=== PATIENT | male | born 1945 | race Caucasian/White ===

== ENCOUNTER → 2016-09-16 | Outpatient (CLI) | payer MEDICARE, OTHER ==
[2016-09-16 11:53] LABS: ABSOLUTE EOSINOPHILS # (AUTO) 0.5 10^3/uL (0.0-0.6); ABSOLUTE LYMPHOCYTES (AUTO) 1.5 10^3/uL (0.5-4.7); ABSOLUTE MONOCYTES (AUTO) 1.1 10^3/uL (0.1-1.4); BASOPHILS % (AUTO) 0.4 % (0-2); EOSINOPHILS % (AUTO) 5.9 % (0-6); HEMATOCRIT 44.9 % (37.9-51.0); HEMOGLOBIN 14.2 g/dL (13.5-17.0); HGB HCT DIFFERENCE -2.3; MEAN CORPUSCULAR HEMOGLOBIN 30.4 pg (27.0-33.4); MEAN CORPUSCULAR HGB CONC 31.7 g/dL (32.0-36.0); MEAN CORPUSCULAR VOLUME 96 fl (80-97); MONOCYTES % (AUTO) 12.1 % (3-13); RED BLOOD COUNT 4.68 10^6/uL (4.35-5.55); RED CELL DISTRIBUTION WIDTH 14.1 % (11.5-14.0); SEGMENTED NEUTROPHILS % (AUTO) 65.6 % (42-78); WHITE BLOOD COUNT 9.2 10^3/uL (4.0-10.5)
== END ==
LOC: LAB 11:28
PROVIDERS: ATTEND Radiology Radiation Oncology
DX: C34.02 Malignant neoplasm of left main bronchus (principal); C34.11 Malignant neoplasm of upper lobe, right bronchus or lung; C77.1 Secondary and unspecified malignant neoplasm of intrathoracic lymph nodes
CPT/HCPCS: 36415; 85025

== ENCOUNTER 2016-11-04 11:37 | Inpatient (IN) | payer MEDICARE, OTHER ==
[2016-11-04] MEDS ORDERED: IPRATROPIUM/ALBUTEROL 0.5-2.5 MG/3 ML AMPUL NEB ONE (12:33)
[2016-11-04] MEDS ORDERED: METHYLPREDNISOLONE INJ 125 MG/2 ML SDV IV ONE (12:33)
--- NOTE | 2016-11-04 12:33 | ER Document Report ---
ED Respiratory Problem - General Chief Complaint: Breathing Difficulty Stated Complaint: DIFFICULTY BREATHING Notes: patient is a 71 year old male wiht PMH s/f stage 4 lung cancer p/w shortness of breath and cough for the past 3 days. States he recently completed radiation on 10/23 for lung cancer. Patient admits to SOB with chest pain worse with deep inhalation, states that the chest pain is fleeting and only with cough or deep breathing, does not last longer then 1 minute. radiates into his back. is not worse with movement or tender to palpation. He also admits to near syncope over the past two days. His son says that he did fall in the bathroom yesterday and denies head injury but admits to pain in the left hip. Denies h/o DVT, PE, PMH: h/o throat cancer in remission for 17 years, with tracheostomy, lung cancer stage 4 recently completed chemorad, AAA, CAD with 4 stents, h/o skin cancer, h/o prostate cancer, h/o CTS, hypothyroid, HLD PSH: coronary cath x3 with stent placement, trach, b/l knee TKA, Carpal tunnel release SH: former smoker, denies etoh, drug Meds: Lipitor, omega-3, Plavix, baby aspirin, multivitamin, calcium, Nexium, iron, levothyroxine, probiotic, tramadol, Ambien, fluoxetine, Advair, tolterodine PCP: fermin Onc: Efrain TRAVEL OUTSIDE OF THE [place] IN LAST 30 DAYS: No - Related Data Allergies/Adverse Reactions: No Known Allergies Allergy (Verified 02/08/16 09:30) Past Medical History - General Information source: Patient, Relative - Social History Smoking Status: Former Smoker Family History: Reviewed & Not Pertinent - Past Medical History Cardiac Medical History: Denies: Hx Atrial Fibrillation, Hx Congestive Heart Failure, Hx Coronary Artery Disease, Hx Heart Attack, Hx Hypercholesterolemia, Hx Hypertension, Hx Peripheral Vascular Disease, Hx Heart Murmur Pulmonary Medical History: Denies: Hx Asthma, Hx Bronchitis, Hx COPD, Hx Pneumonia Neurological Medical History: Denies: Hx Cerebrovascular Accident, Hx Seizures Renal/ Medical History: Reports: Hx Benign Prostatic Hyperplasia. Denies: Hx End Stage Renal Disease, Hx Kidney Stones, Hx Peritoneal Dialysis GI Medical History: Denies: Hx Hiatal Hernia Musculoskeltal Medical History: Reports Hx Arthritis - Both Knees Infectious Medical History: Past Surgical History: Reports: Hx Herniorrhaphy. Denies: Hx Appendectomy, Hx Bowel Surgery, Hx Cholecystectomy, Hx Coronary Artery Bypass Graft, Hx Gastric Bypass Surgery, Hx Open Heart Surgery, Hx Pacemaker, Hx Tonsillectomy - Immunizations Hx Diphtheria, Pertussis, Tetanus Vaccination: Yes - 2008 Hx Pneumococcal Vaccination: 06/01/14 Review of Systems - Review of Systems Constitutional: Chills, Diaphoresis EENT: No symptoms reported Cardiovascular: See HPI Respiratory: See HPI Gastrointestinal: No symptoms reported Genitourinary: No symptoms reported Male Genitourinary: No symptoms reported Musculoskeletal: No symptoms reported Skin: No symptoms reported Hematologic/Lymphatic: No symptoms reported Neurological/Psychological: No symptoms reported Physical Exam - Vital signs Vitals: Resp Pulse Ox 29 H 100 11/04/16 11:52 11/04/16 11:52 - Notes Notes: PHYSICAL EXAM GENERAL: Alert, interacts well. HEAD: Normocephalic, atraumatic. EYES: Pupils equal, round, and reactive to light. Extraocular movements intact. ENT: Oral mucosa moist, tongue midline. NECK: Full range of motion. Supple. Trachea midline. LUNGS: diminished breath sounds with wheezing, worse on the right, rales, or rhonchi. No respiratory distress. HEART: Regular rate and rhythm. No murmurs, gallops, or rubs. ABDOMEN: Soft, nondistended, nontender. No guarding, rebound, or rigidity.. Bowel sounds present in all 4 quadrants. EXTREMITIES: Moves all 4 extremities spontaneously. No edema, radial and dorsalis pedis pulses 2/4 bilaterally. No cyanosis. NEUROLOGICAL: Alert and oriented x3. Normal speech. PSYCH: Normal affect, normal mood. SKIN: Warm, dry, normal turgor. No rashes or lesions noted. Course - Re-evaluation Re-evalutation: 11/04/16 15:09 patient is a 71 year old male presents to the ED for SOB for 3 days. Patient does have a known diagnosis of stage 4 lung cancer as well as COPD. Was previously on advair but was taken of and switched to albuterol. CBC does not reveal evidence of leukocytosis or anemia. CMP does not reveal abnormalities in electrolytes, liver or pancreas function. D-dimer was elevated at 2.20. CXR does not show any acute process except for evidence of COPD. Patient currently HDS, NAD and afebrile with heart rate at 110 and sating 99% on 2L face mask over trach. At this time, Dr. daniel was consulted to discuss additional imaging. Patient was sent for a CTA of the chest given risk factors for PE and current presentation. 11/04/16 15:54 CTA of the chest does not reveal PE. Patient states that he feels like he is breathing better after breathing treatment but still appears to be breathing with effort. Attempt to wean 02 reveals desaturation to 87-88%. At this time, given underlying path and current COPD exaceration requiring supplemental 02, will admit to medical floor under Dr. Peyman Dominguez. Per [facility] protocol and guidelines, this case was discussed with supervising physician Dr. Елена Chan prior to admission Family at the bedside have mentioned that the patients oncologist is requesting a MRI of the brain for subjective confusion but for additional staging given patient has a h/o of 4 primary malignancies. D/w supervising physician Dr. Елена Chan. - Vital Signs Vital signs: Temp Pulse Resp BP Pulse Ox 20 131/80 H 95 11/04/16 15:22 11/04/16 15:22 11/04/16 15:22 - Laboratory Result Diagrams: 11/04/16 12:15 11/04/16 12:15 Laboratory results interpreted by me: 11/04/16 11/04/16 11/04/16 12:15 12:15 12:15 RBC 4.01 L Hgb 12.5 L Hct 36.4 L RDW 14.3 H Seg Neuts % (Manual) 79 H Lymphocytes % (Manual) 5 L Metamyelocytes % 1 H Abs Lymphs (Manual) 0.4 L D-Dimer 2.20 H VBG pCO2 Carbon Dioxide 21 L Creatine Kinase 222 H Urine Protein Urine Ascorbic Acid 11/04/16 11/04/16 13:04 13:55 RBC Hgb Hct RDW Seg Neuts % (Manual) Lymphocytes % (Manual) Metamyelocytes % Abs Lymphs (Manual) D-Dimer VBG pCO2 33.8 L Carbon Dioxide Creatine Kinase Urine Protein 30 H Urine Ascorbic Acid 40 H - Diagnostic Test Radiology reviewed: Image reviewed, Reports reviewed - EKG Interpretation by Me EKG shows normal: Sinus rhythm Rate: Tachycardia Rhythm: NSR When compared to previous EKG there are: Changes noted Discharge - Discharge Clinical Impression: COPD with exacerbation Condition: Stable Disposition: ADMITTED INPATIENT Admitting Provider: Hospitalist - [facility] Admitted: Medical Floor Referrals: MODE MARQUES MD [Primary Care Provider] - Follow up as needed
[2016-11-04 12:51] LABS: HEMATOCRIT 36.4 % (37.9-51.0); HEMOGLOBIN 12.5 g/dL (13.5-17.0); HGB HCT DIFFERENCE 1.1; MEAN CORPUSCULAR HEMOGLOBIN 31.1 pg (27.0-33.4); MEAN CORPUSCULAR HGB CONC 34.3 g/dL (32.0-36.0); MEAN CORPUSCULAR VOLUME 91 fl (80-97); RED BLOOD COUNT 4.01 10^6/uL (4.35-5.55); RED CELL DISTRIBUTION WIDTH 14.3 % (11.5-14.0); WHITE BLOOD COUNT 8.5 10^3/uL (4.0-10.5)
[2016-11-04 13:06] LABS: ALANINE AMINOTRANSFERASE 31 U/L (21-72); ALBUMIN 3.6 g/dL (3.5-5.0); ALKALINE PHOSPHATASE 117 U/L (38-126); ANION GAP 16 (5-19); ASPARTATE AMINO TRANSFERASE 49 U/L (17-59); BILIRUBIN,TOTAL 0.8 mg/dL (0.2-1.3); BLOOD UREA NITROGEN 17 mg/dL (7-20); CALCIUM 8.8 mg/dL (8.4-10.2); CARBON DIOXIDE 21 mmol/L (22-30); CHLORIDE 102 mmol/L (98-107); CREATINE KINASE 222 U/L (55-170); CREATININE RESULT 0.75 mg/dL (0.52-1.25); GLUCOSE 110 mg/dL (75-110); SODIUM 138.6 mmol/L (137-145); TOTAL PROTEIN 7.3 g/dL (6.3-8.2)
[2016-11-04 13:12] LABS: BAND NEUTROPHILS % (MANUAL) 3 % (3-5); BASOPHILS % (MANUAL) 0 % (0-2); EOSINOPHILS % (MANUAL) 3 % (0-6); LYMPHOCYTES % (MANUAL) 5 % (13-45); OVALOCYTES SLIGHT; POIKILOCYTOSIS SLIGHT; POLYCHROMASIA SLIGHT; TOTAL CELLS COUNTED 100; TOXIC GRANULATION SLIGHT; TOXIC VACUOLATION PRESENT
[2016-11-04 13:14] LABS: CREATINE KINASE MB 1.89 ng/mL (<4.55)
[2016-11-04 13:15] LABS: TROPONIN I < 0.012 ng/mL
[2016-11-04 13:46] LABS: VENOUS BLOOD PCO2 33.8 mmHg (35-63); VENOUS BLOOD PH 7.41 (7.30-7.42)
[2016-11-04 14:20] LABS: APPEARANCE,URINE SLIGHTLY-CLOUDY; BILIRUBIN,URINE NEGATIVE (NEGATIVE); GLUCOSE, URINE NEGATIVE (NEGATIVE); KETONES,URINE NEGATIVE (NEGATIVE); LEUKOCYTE ESTERASE,URINE NEGATIVE (NEGATIVE); NITRITE,URINE NEGATIVE (NEGATIVE); PROTEIN,URINE 30 mg/dL (NEGATIVE); URINE SPECIFIC GRAVITY 1.017; UROBILINOGEN,URINE NEGATIVE mg/dL (<2.0)
[2016-11-04] MEDS ORDERED: ACETAMINOPHEN 325 MG TABLET PO ONE (15:44)
[2016-11-04] MEDS ORDERED: ONDANSETRON HCL INJ/PF 4 MG/2 ML SDV IV PRN (16:33)
[2016-11-04] MEDS ORDERED: ACETAMINOPHEN 325 MG TABLET PO PRN (16:33)
[2016-11-04] MEDS ORDERED: ONDANSETRON 4 MG TAB.RAPDIS PO PRN (16:33)
[2016-11-04] MEDS ORDERED: IPRATROPIUM/ALBUTEROL 0.5-2.5 MG/3 ML AMPUL NEB PRN (17:05)
--- NOTE | 2016-11-04 17:14 | PDOC H&P ---
History of Present Illness Admission Date/PCP: 11/04/16 16:05 MODE MARQUES MD Patient complains of: Cough and shortness of breath History of Present Illness: MARIAMA RASHEED is a 71 year old male with a distant history of laryngeal cancer and a recent history of lung cancer for which he finished his radiation therapy on October 23 who presents with shortness of breath and cough. Patient reports that over the last week she's had worsening cough over the last 3 days has become more short of breath and has had a cough productive of thick greenish bloody tinged sputum. Patient also has been short of breath and has had some worsening dyspnea on exertion. He had a positive d-dimer and underwent a CT angiogram of the lungs are showed no evidence for pulmonary embolism but did show his lung tumor and no obvious infiltrate. The patient denies having any chest pain associated with this. He denies any orthopnea or PND. Patient is admitted for an acute COPD exacerbation with bronchitis. Past Medical History Cardiac Medical History: Reports: Coronary Artery Disease, Hyperlipidema, Hypertension, Peripheral Vascular Disease Denies: Atrial Fibrillation, Congestive Heart Failure, Myocardial Infarction , Heart Murmur Pulmonary Medical History: Reports: Chronic Obstructive Pulmonary Disease (COPD) , Other - Lung cancer Denies: Asthma, Bronchitis, Pneumonia Neurological Medical History: Reports: Other - Myasthenia gravis is listed in the past medical history from a history of his in 2011, patient was unaware that he had this diagnosis Denies: Seizures Endocrine Medical History: Reports: None Malignancy Medical History: Reports: Lung Cancer, Other - Laryngeal cancer GI Medical History: Reports: Gastroesophageal Reflux Disease Denies: Hiatal Hernia Musculoskeltal Medical History: Reports: Arthritis - Both Knees Skin Medical History: Reports: None Psychiatric Medical History: Reports: None Hematology: Denies: Anemia Past Surgical History Past Surgical History: Reports: Cardiac Catheterization, Carotid Endarterectomy , Coronary Stent, Herniorrhaphy, Vascular Surgery - Right femoropopliteal bypass Social History Information Source: Patient Lives with: Spouse/Significant other Smoking Status: Former Smoker Frequency of Alcohol Use: None Hx Recreational Drug Use: No Drugs: None Hx Prescription Drug Abuse: No - Advance Directive Resuscitation Status: Do Not Resuscitate - Patient requests to be a DO NOT RESUSCITATE Family History Family History: Father at age 36 from an accidental . Mother age 56 from breast cancer Parental Family History Reviewed: Yes Children Family History Reviewed: No Sibling(s) Family History Reviewed.: No Medication/Allergy Home Medications: Aspirin 81 mg Chewable Tablet 81 mg PO DAILY 09/01/11 Fish Oil 1,000 mg PO DAILY 09/01/11 Multivitamins 1 tab PO DAILY 09/01/11 Plavix 75 mg Tablet 75 mg PO DAILY 09/01/11 Tramadol HCl 2 tab PO Q4H 09/14/11 Acetaminophen [Pain & Fever] 1 tab PO QID 02/08/16 Amoxicillin Trihydrate [Amoxil 875 mg Tablet] 1 tab PO BID PRN 02/08/16 Bacitracin Zinc [Bacitracin Oint 15 gm] 1 applic TP DAILY 02/08/16 Calcium Carbonate [Calcium] 500 mg PO DAILY 02/08/16 Esomeprazole Magnesium [Nexium] 40 mg PO DAILY 02/08/16 Ipratropium [place] [Atrovent Hfa] 12.9 gm IH DAILY 02/08/16 Ketoconazole 15 gm TP DAILY 02/08/16 Nystatin [Mycostatin 589545 Unit/1 ml Susp 60 ml Btl] 100,000 unit PO DAILY 05/17 Rosuvastatin Calcium [Crestor 10 mg Tablet] 10 mg PO DAILY 02/08/16 Thyroxine 25 mg PO DAILY 02/08/16 Allergies/Adverse Reactions: No Known Allergies Allergy (Verified 02/08/16 09:30) Review of Systems Constitutional: PRESENT: chills, fever(s). ABSENT: night sweats, weight gain, weight loss Eyes: ABSENT: visual disturbances Ears: ABSENT: hearing changes Cardiovascular: PRESENT: as per HPI, dyspnea on exertion. ABSENT: chest pain, edema, orthropnea, palpitations Respiratory: PRESENT: as per HPI, cough, dyspnea, sputum - Greenish blood tinged. ABSENT: hemoptysis Gastrointestinal: ABSENT: abdominal pain, constipation, diarrhea, hematemesis, hematochezia, nausea, vomiting Genitourinary: ABSENT: dysuria, hematuria Musculoskeletal: ABSENT: joint swelling Integumentary: ABSENT: rash, wounds Neurological: ABSENT: abnormal gait, abnormal speech, confusion, dizziness, focal weakness, syncope Psychiatric: ABSENT: anxiety, depression Endocrine: ABSENT: cold intolerance, heat intolerance, polydipsia, polyuria Hematologic/Lymphatic: ABSENT: easy bleeding, easy bruising Physical Exam Vital Signs: Temp Pulse Resp BP Pulse Ox 25 H 137/84 H 100 11/04/16 16:01 11/04/16 16:01 11/04/16 16:01 General appearance: PRESENT: mild distress Head exam: PRESENT: atraumatic, normocephalic Eye exam: PRESENT: conjunctiva pink, EOMI, PERRLA. ABSENT: scleral icterus Ear exam: PRESENT: normal external ear exam Mouth exam: PRESENT: moist, tongue midline Neck exam: PRESENT: tracheostomy. ABSENT: carotid bruit, JVD, lymphadenopathy, thyromegaly Respiratory exam: PRESENT: wheezes - Bilateral expiratory wheezes.. ABSENT: rales, rhonchi Cardiovascular exam: PRESENT: RRR. ABSENT: diastolic murmur, rubs, systolic murmur Vascular exam: PRESENT: normal capillary refill GI/Abdominal exam: PRESENT: normal bowel sounds, soft. ABSENT: distended, guarding, mass, organolmegaly, rebound, tenderness Rectal exam: PRESENT: deferred Extremities exam: ABSENT: calf tenderness, clubbing, pedal edema Neurological exam: PRESENT: alert, awake, oriented to person, oriented to place , oriented to time, oriented to situation, CN II-XII grossly intact. ABSENT: motor sensory deficit Psychiatric exam: PRESENT: appropriate affect Skin exam: PRESENT: dry, intact, warm. ABSENT: cyanosis, rash Results Impressions: Chest X-Ray 11/04/16 11:40 IMPRESSION: COPD. NO ACUTE RADIOGRAPHIC FINDING IN THE CHEST. Chest/Abdomen CTA 11/04/16 13:01 IMPRESSION: Left suprahilar mass. Probably a malignant. Possible subcarinal adenopathy. See above discussion. Severe centrilobular and paraseptal emphysema. Assessment & Plan - Diagnosis (1) COPD with exacerbation Is this a current diagnosis for this admission?: YesPlan: Patient has an acute COPD exacerbation most likely secondary to some underlying bronchitis. He did finished radiation therapy for his lung cancer on October 23. We will treat with IV steroids, nebulizers, antibiotics in the form of Rocephin and Zithromax. (2) Bronchitis Is this a current diagnosis for this admission?: YesPlan: he has some blood-tinged sputum we'll cover with Rocephin and Zithromax. (3) Coronary artery disease Is this a current diagnosis for this admission?: YesPlan: Denies any chest pain (4) Lung cancer Is this a current diagnosis for this admission?: YesPlan: The patient finished up his radiation therapy on October 23 (5) Hypertension Is this a current diagnosis for this admission?: Yes (6) Hyperlipidemia Is this a current diagnosis for this admission?: Yes (7) Gastroesophageal reflux disease Is this a current diagnosis for this admission?: Yes (8) Peripheral vascular disease Is this a current diagnosis for this admission?: Yes (9) Abdominal aortic aneurysm (AAA) Is this a current diagnosis for this admission?: YesPlan: Patient has a 4.5 cm abdominal aortic aneurysm by his report. He is to have a endovascular repair in the near future. (10) Laryngeal carcinoma Is this a current diagnosis for this admission?: YesPlan: He had his tracheostomy several years ago. The lung cancer and laryngeal cancer are not related (11) Prostate cancer Is this a current diagnosis for this admission?: YesPlan: Patient received radiation therapy this years ago and is asymptomatic (12) Myasthenia gravis Is this a current diagnosis for this admission?: YesPlan: The patient has listed in the chart from 2011 that he had myasthenia gravis. Patient denies any knowledge of having been diagnosed with myasthenia gravis. This most likely is in error - Time Time Spent: 50 to 70 Minutes - Inpatient Certification Medical Necessity: Need Close Monitoring Due to Risk of Patient Decompensation, Need for IV Antibiotics - Plan Summary Plan Summary: We'll make a full inpatient as I anticipate this will require greater than a two midnight hospital stay because of his need for IV antibiotics and IV steroids for treatment of his acute COPD exacerbation with bronchitis.
[2016-11-04] MEDS ORDERED: ENOXAPARIN SODIUM INJ 40 MG/0.4 ML DISP.SYRIN SUBCUT ONE (18:00)
[2016-11-04] MEDS: AZITHROMYCIN 500 MG in DEXTROSE 5%-WATER 250 ML IV SCH (18:37)
--- NOTE | 2016-11-04 20:49 | EKG REPORT ---
SEVERITY:- OTHERWISE NORMAL ECG - SINUS TACHYCARDIA : Confirmed by: Bessy Wood 04-Nov-2016 20:48:53
[2016-11-04] MEDS: CEFTRIAXONE 1 GM/D5W RTU 1 GM/50 ML RTUPB IV SCH (23:28)
[2016-11-04] MEDS: NORMAL SALINE 1000 ML 1,000 ML IV PRN (23:29)
[2016-11-04] MEDS ORDERED: ZOLPIDEM TARTRATE 5 MG TABLET PO ONE (23:45)
[2016-11-05] MEDS: ATORVASTATIN CALCIUM 20 MG TABLET PO SCH ×2 (00:17→21:10)
[2016-11-05] MEDS: METHYLPREDNISOLONE INJ 40 MG/1 ML SDV IV SCH ×4 (00:17→21:11)
[2016-11-05 05:28] LABS: HEMOGLOBIN 11.6 g/dL (13.5-17.0); HGB HCT DIFFERENCE 0.8; MEAN CORPUSCULAR HEMOGLOBIN 31.3 pg (27.0-33.4); MEAN CORPUSCULAR HGB CONC 34.2 g/dL (32.0-36.0); MEAN CORPUSCULAR VOLUME 92 fl (80-97); RED BLOOD COUNT 3.71 10^6/uL (4.35-5.55); RED CELL DISTRIBUTION WIDTH 14.3 % (11.5-14.0); WHITE BLOOD COUNT 5.6 10^3/uL (4.0-10.5)
[2016-11-05 05:53] LABS: ANION GAP 10 (5-19); BLOOD UREA NITROGEN 20 mg/dL (7-20); CALCIUM 8.6 mg/dL (8.4-10.2); CARBON DIOXIDE 24 mmol/L (22-30); CHLORIDE 107 mmol/L (98-107); GLUCOSE 152 mg/dL (75-110); POTASSIUM 4.3 mmol/L (3.6-5.0); SODIUM 141.4 mmol/L (137-145)
[2016-11-05] MEDS: IPRATROPIUM/ALBUTEROL 0.5-2.5 MG/3 ML AMPUL NEB SCH ×3 (07:46→20:04)
[2016-11-05] MEDS ORDERED: (PENDING PHARMACY ID) (Calcium Carbonate [Calcium] 500 MG) PO SCH (10:00)
[2016-11-05] MEDS ORDERED: ASPIRIN 81 MG PO SCH (10:00)
[2016-11-05] MEDS ORDERED: FISH OIL 1000 MG PO SCH (10:00)
[2016-11-05] MEDS: ENOXAPARIN SODIUM INJ 40 MG/0.4 ML DISP.SYRIN SUBCUT SCH (10:25)
[2016-11-05] MEDS: OMEGA-3 ACID ETHYL ESTERS 1 GM CAPSULE PO SCH (10:26)
[2016-11-05] MEDS: CALCIUM CARBONATE 500 MG TABLET PO SCH (10:26)
[2016-11-05] MEDS: ASPIRIN 81 MG TABLET, CHEWABLE PO SCH (10:26)
[2016-11-05] MEDS: LANSOPRAZOLE 30 MG TAB.RAP.DR PO SCH (10:26)
[2016-11-05] MEDS: NORMAL SALINE 1000 ML 1,000 ML IV PRN ×2 (10:27→21:11)
[2016-11-05] MEDS: CLOPIDOGREL BISULFATE 75 MG TABLET PO SCH (10:27)
--- NOTE | 2016-11-05 16:33 | Physician Advisory Note ---
Physician Advisor ProgressNote .: Pursuant to the plan for [facility], I have reviewed the medical record for this patient. Physician Advisor Statement: Possible documentation opportunities if attending agrees: 1. "acute hypoxemic respiratory failure with O2 sat 79% on RA for EMS , sat 100 % initially here on 15L NRB O2 with continued increased work of breathing" (as per initial ED nursing assessment) 2. "Acute bronchitis" - or do you feel pt has 'chronic bronchitis' instead? 3. Code status order is for Full Code. H&P states pt desires DNR. Did pt change mind? Please address discrepancy in documentation. As always, if concerned about any unstable VS or abnormal labs, please comment on them & note what doing about them, & please document each day the potential clinical problems you are concerned could occur if pt not kept in hospital for tx at this time. Discussion: 71yo male w/ chronic co-morbidities including stage 4 lung CA (type?) recently s /p chemo/radiation, COPD, CAD w/4 stents, past prostate CA & throat CA w/trach - presented 3/6AM to ED w/SOB/cough/pleuritic CP/chills/diaphoresis, near syncope, fall in Bathroom 1 day prior w/pain Lt hip, reported change of Advair to albuterol. (+) RR29, HR 110, sat high 90s -100 on O2 after initial 79% RA for EMS, continued effortful breathing, desat to 87-88% in ED when attempted to wean O2. D-dimer 2.20, CXR = COPD, Hgb 12.5, WBC 8.5, bicarb 21. CT-A = no PE/ infiltrate but (+)lung tumor Lt suprahilar area & severe emphysema. Attending ordered IV sSolumedrol 40 IV q8h, Zithromax IV, Rocephin IV, NS @125, Duonebs q6h WA, I/Os, sputum cx, VS q4h, full code, O2 per trach collar. Status: Pt with not just a routine uncomplicated COPD exacerbation but acute respiratory failure on top of COPD exac & lung CA stage 4 w/continued lung tumor presence & severe underlying emphysema by CT. Attending documents expectation that it will take >1MN of hospital care for this to be stabilized, & this reviewer agrees this would be expected given the associated comorbidities & unlikeliness of quick response in this case. Pt still SOB this AM per nursing notes. Tx in inpatient hospital setting medically reasonable & necessary to protect pt' s health, safety, & medical condition. Appropriate for Inpt status. Thanks for your help with documentation accuracy/specificity improvement! Darlene Hayden MD PENDING S[facility] Physician Advisor, Fellow of Hospital Medicine
--- NOTE | 2016-11-05 16:38 | PDOC PROGRESS REPORT ---
Subjective Progress Note for:: 11/05/16 Subjective:: Patient is feeling better. Breathing is better. Still coughing up a lot of dry mucous. Denies chills or fever. No diarrhea. Occasional pleurisy. Physical Exam Vital Signs: Temp Pulse Resp BP Pulse Ox 98.3 F 80 18 150/72 H 100 11/05/16 11:46 11/05/16 14:08 11/05/16 14:08 11/05/16 11:46 11/05/16 14:08 Intake & Output 11/04/16 11/05/16 11/06/16 06:59 06:59 06:59 Intake Total 1279 Output Total 450 Balance -450 1279 Weight 75.5 kg General appearance: PRESENT: no acute distress, cooperative Head exam: PRESENT: normocephalic Eye exam: PRESENT: EOMI Mouth exam: PRESENT: moist, neck supple, other - Tracheostomy stoma clean Neck exam: ABSENT: JVD Respiratory exam: PRESENT: wheezes - Minimal bilateral. ABSENT: crackles, rhonchi Cardiovascular exam: PRESENT: RRR. ABSENT: gallop GI/Abdominal exam: PRESENT: soft. ABSENT: distended, tenderness Extremities exam: PRESENT: other - Trace pretibial edema. ABSENT: clubbing Neurological exam: PRESENT: alert, awake, oriented to situation Skin exam: PRESENT: dry, warm. ABSENT: cyanosis Results Laboratory Results: 11/05/16 04:40 11/05/16 04:40 11/05/16 11/05/16 04:40 04:40 WBC 5.6 RBC 3.71 L Hgb 11.6 L Hct 34.0 L MCV 92 MCH 31.3 MCHC 34.2 RDW 14.3 H Plt Count 247 Sodium 141.4 Potassium 4.3 Chloride 107 Carbon Dioxide 24 Anion Gap 10 BUN 20 Creatinine 0.70 Est GFR ( Amer) > 60 Est GFR (Non-Af Amer) > 60 Glucose 152 H Calcium 8.6 Impressions: Chest X-Ray 11/04/16 11:40 IMPRESSION: COPD. NO ACUTE RADIOGRAPHIC FINDING IN THE CHEST. Chest/Abdomen CTA 11/04/16 13:01 IMPRESSION: Left suprahilar mass. Probably a malignant. Possible subcarinal adenopathy. See above discussion. Severe centrilobular and paraseptal emphysema. Assessment & Plan - Diagnosis (1) COPD with exacerbation Is this a current diagnosis for this admission?: Yes (2) Lung cancer Qualifiers: Laterality: unspecified laterality Lung location: unspecified part of lung Qualified Code(s): C34.90 - Malignant neoplasm of unspecified part of unspecified bronchus or lung Is this a current diagnosis for this admission?: Yes (3) Coronary artery disease Qualifiers: Coronary Disease-Associated Artery/Lesion type: [place] artery [place] vs. transplanted heart: [place] heart Associated angina: without angina Qualified Code(s): I25.10 - Atherosclerotic heart disease of [place] coronary artery without angina pectoris Is this a current diagnosis for this admission?: Yes (4) Gastroesophageal reflux disease Qualifiers: Esophagitis presence: without esophagitis Qualified Code(s): K21.9 - Gastro-esophageal reflux disease without esophagitis Is this a current diagnosis for this admission?: Yes (5) Hyperlipidemia Qualifiers: Hyperlipidemia type: unspecified Qualified Code(s): E78.5 - Hyperlipidemia, unspecified Is this a current diagnosis for this admission?: Yes (6) Hypertension Qualifiers: Hypertension type: essential hypertension Qualified Code(s): I10 - Essential (primary) hypertension Is this a current diagnosis for this admission?: Yes (7) Peripheral vascular disease Is this a current diagnosis for this admission?: Yes - Time Time Spent with patient: 25-34 minutes - Plan Summary Plan Summary: We will add vancomycin to current antibiotic regimen. Follow cultures. We will continue COPD treatment. We will evaluate for home oxygen requirement. Continue supportive care. We will send a sputum specimen for cytology.
[2016-11-05] MEDS ORDERED: VANCOMYCIN HCL INJ 1000 MG VIAL IV SCH (16:45)
[2016-11-05] MEDS: CEFTRIAXONE 1 GM/D5W RTU 1 GM/50 ML RTUPB IV SCH (17:46)
[2016-11-05] MEDS: AZITHROMYCIN 500 MG in DEXTROSE 5%-WATER 250 ML IV SCH (18:44)
[2016-11-05] MEDS: ZOLPIDEM TARTRATE 5 MG TABLET PO SCH (21:10)
[2016-11-05] MEDS: VANCOMYCIN HCL 1,250 MG in DEXTROSE 5%-WATER 250 ML IV SCH (21:14)
[2016-11-06] MEDS: METHYLPREDNISOLONE INJ 40 MG/1 ML SDV IV SCH (05:27)
[2016-11-06] MEDS: IPRATROPIUM/ALBUTEROL 0.5-2.5 MG/3 ML AMPUL NEB SCH ×3 (07:54→20:49)
[2016-11-06] MEDS: ENOXAPARIN SODIUM INJ 40 MG/0.4 ML DISP.SYRIN SUBCUT SCH (09:32)
[2016-11-06] MEDS: OMEGA-3 ACID ETHYL ESTERS 1 GM CAPSULE PO SCH (09:34)
[2016-11-06] MEDS: CALCIUM CARBONATE 500 MG TABLET PO SCH (09:34)
[2016-11-06] MEDS: ASPIRIN 81 MG TABLET, CHEWABLE PO SCH (09:34)
[2016-11-06] MEDS: LANSOPRAZOLE 30 MG TAB.RAP.DR PO SCH (09:35)
[2016-11-06] MEDS: CLOPIDOGREL BISULFATE 75 MG TABLET PO SCH (09:35)
[2016-11-06] MEDS: VANCOMYCIN HCL 1,250 MG in DEXTROSE 5%-WATER 250 ML IV SCH ×2 (09:38→21:28)
[2016-11-06] MEDS ORDERED: VANCOMYCIN HCL 1,000 MG in DEXTROSE 5%-WATER 250 ML IV SCH (10:00)
--- NOTE | 2016-11-06 10:13 | PDOC PROGRESS REPORT ---
Subjective Progress Note for:: 11/06/16 Subjective:: Patient is feeling better today. Still with some coughing less. Room air oxygen at rest is greater than 90%. Patient denies any chills or fever, nausea or vomiting, abdominal pain, diarrhea. Physical Exam Vital Signs: Temp Pulse Resp BP Pulse Ox 98.3 F 118 H 16 125/59 L 97 11/06/16 08:31 11/06/16 08:31 11/06/16 08:31 11/06/16 08:31 11/06/16 08:31 Intake & Output 11/05/16 11/06/16 11/07/16 06:59 06:59 06:59 Intake Total 3035 Output Total 450 675 Balance -450 2360 Weight 75.5 kg 78.2 kg General appearance: PRESENT: no acute distress, cooperative Head exam: PRESENT: normocephalic Eye exam: PRESENT: EOMI, scleral icterus Ear exam: PRESENT: normal external ear exam. ABSENT: drainage Mouth exam: PRESENT: moist, neck supple Neck exam: ABSENT: JVD Respiratory exam: PRESENT: decreased breath sounds. ABSENT: rhonchi - few Cardiovascular exam: PRESENT: RRR. ABSENT: diastolic murmur, rubs, systolic murmur Pulses: PRESENT: normal dorsalis pedis pul Vascular exam: PRESENT: normal capillary refill GI/Abdominal exam: PRESENT: soft. ABSENT: distended, tenderness Extremities exam: ABSENT: pedal edema Neurological exam: PRESENT: alert, awake, oriented to person, oriented to place , oriented to time, oriented to situation Skin exam: PRESENT: dry, warm. ABSENT: cyanosis Results Laboratory Results: 11/05/16 04:40 11/05/16 04:40 11/04/16 21:00 Sputum Gram Stain - Final Impressions: Chest X-Ray 11/04/16 11:40 IMPRESSION: COPD. NO ACUTE RADIOGRAPHIC FINDING IN THE CHEST. Chest/Abdomen CTA 11/04/16 13:01 IMPRESSION: Left suprahilar mass. Probably a malignant. Possible subcarinal adenopathy. See above discussion. Severe centrilobular and paraseptal emphysema. Assessment & Plan - Diagnosis (1) COPD with exacerbation Is this a current diagnosis for this admission?: Yes (2) Lung cancer Qualifiers: Laterality: unspecified laterality Lung location: unspecified part of lung Qualified Code(s): C34.90 - Malignant neoplasm of unspecified part of unspecified bronchus or lung Is this a current diagnosis for this admission?: Yes (3) Coronary artery disease Qualifiers: Coronary Disease-Associated Artery/Lesion type: [place] artery [place] vs. transplanted heart: [place] heart Associated angina: without angina Qualified Code(s): I25.10 - Atherosclerotic heart disease of [place] coronary artery without angina pectoris Is this a current diagnosis for this admission?: Yes (4) Gastroesophageal reflux disease Qualifiers: Esophagitis presence: without esophagitis Qualified Code(s): K21.9 - Gastro-esophageal reflux disease without esophagitis Is this a current diagnosis for this admission?: Yes (5) Hyperlipidemia Qualifiers: Hyperlipidemia type: unspecified Qualified Code(s): E78.5 - Hyperlipidemia, unspecified Is this a current diagnosis for this admission?: Yes (6) Hypertension Qualifiers: Hypertension type: essential hypertension Qualified Code(s): I10 - Essential (primary) hypertension Is this a current diagnosis for this admission?: Yes (7) Peripheral vascular disease Is this a current diagnosis for this admission?: Yes - Time Time Spent with patient: 15-24 minutes - Plan Summary Plan Summary: Continue ceftriaxone and vancomycin. Discontinue Zithromax. We will give lactobacillus. Patient reports Clostridium difficile toxin in the past w/ IV antibiotics. Check room air oxygen saturation on ambulation. Follow cultures.
[2016-11-06] MEDS ORDERED: (PENDING PHARMACY ID) (L.Acidoph & Paracasei,B.Lactis [Probiotic] 1 CAP) PO SCH (10:15)
[2016-11-06] MEDS: PREDNISONE 20 MG TABLET PO SCH (12:18)
[2016-11-06] MEDS: LACTOBACILLUS ACIDOPHILUS 250 MG TAB PO SCH (18:29)
[2016-11-06] MEDS: CEFTRIAXONE 1 GM/D5W RTU 1 GM/50 ML RTUPB IV SCH (18:31)
[2016-11-06] MEDS ORDERED: NORMAL SALINE 1000 ML 1,000 ML IV PRN (18:40)
[2016-11-06] MEDS: ATORVASTATIN CALCIUM 20 MG TABLET PO SCH (21:27)
[2016-11-06] MEDS: ZOLPIDEM TARTRATE 5 MG TABLET PO SCH (21:28)
[2016-11-07] MEDS: IPRATROPIUM/ALBUTEROL 0.5-2.5 MG/3 ML AMPUL NEB SCH ×2 (08:49→13:29)
[2016-11-07 11:01] LABS: CREATININE RESULT 0.78 mg/dL (0.52-1.25)
[2016-11-07] MEDS: LACTOBACILLUS ACIDOPHILUS 250 MG TAB PO SCH (11:05)
[2016-11-07] MEDS: CLOPIDOGREL BISULFATE 75 MG TABLET PO SCH (11:06)
[2016-11-07] MEDS: OMEGA-3 ACID ETHYL ESTERS 1 GM CAPSULE PO SCH (11:06)
[2016-11-07] MEDS: ASPIRIN 81 MG TABLET, CHEWABLE PO SCH (11:06)
[2016-11-07] MEDS: PREDNISONE 20 MG TABLET PO SCH (11:06)
[2016-11-07] MEDS: LANSOPRAZOLE 30 MG TAB.RAP.DR PO SCH (11:07)
[2016-11-07] MEDS: ENOXAPARIN SODIUM INJ 40 MG/0.4 ML DISP.SYRIN SUBCUT SCH (11:07)
[2016-11-07] MEDS: CALCIUM CARBONATE 500 MG TABLET PO SCH (11:07)
--- NOTE | 2016-11-07 14:38 | PDOC DISCHARGE SUMMARY ---
General - Admit/Disc Date/PCP Admission Date/Primary Care Provider: 11/04/16 16:33 MODE MARQUES MD Discharge Date: 11/07/16 - Discharge Diagnosis (1) COPD with exacerbation Is this a current diagnosis for this admission?: Yes (2) Bronchitis Is this a current diagnosis for this admission?: Yes (3) Lung cancer Is this a current diagnosis for this admission?: Yes (4) Coronary artery disease Is this a current diagnosis for this admission?: Yes (5) Gastroesophageal reflux disease Is this a current diagnosis for this admission?: Yes (6) Hyperlipidemia Is this a current diagnosis for this admission?: Yes (7) Hypertension Is this a current diagnosis for this admission?: Yes (8) Peripheral vascular disease Is this a current diagnosis for this admission?: Yes - Additional Information Resuscitation Status: Do Not Resuscitate - Patient requests to be a DO NOT RESUSCITATE Discharge Diet: Cardiac - cardiac prudent Discharge Activity: Activity As Tolerated, Balance Activity w/Rest, Slowly Increase Activity Home Medications: Aspirin [Aspirin 81 mg Chewable Tablet] 81 mg PO DAILY 11/04/16 Atorvastatin Calcium [Lipitor 20 mg Tablet] 20 mg PO DAILY 11/04/16 Calcium Carbonate 500 mg PO DAILY 11/04/16 Carboxymethylcellulose Sodium [Lubricant Eye Drops] 1 drop OU Q12 11/04/16 Clopidogrel Bisulfate [Plavix 75 mg Tablet] 75 mg PO DAILY 11/04/16 Duloxetine HCl [Cymbalta] 60 mg PO DAILY 11/04/16 Esomeprazole Magnesium [Nexium] 40 mg PO DAILY 11/04/16 Ferrous Sulfate [Feosol 325 mg Tablet] 325 mg PO DAILY 11/04/16 Ipratropium Lindsay [Atrovent Hfa] 1 puff IH Q12 11/04/16 L.acidoph & Paracasei,B.lactis [Probiotic] 1 cap PO DAILY 11/04/16 Levothyroxine Sodium [Synthroid 0.025 mg Tablet] 25 mcg PO DAILY 11/04/16 Multivitamin [Daily Multiple Vitamin] 1 tab PO DAILY 11/04/16 Nystatin [Mycostatin 276122 Unit/1 ml Susp 60 ml Btl] 1 dose PO ASDIR PRN [place]-3 Fatty Acids/Fish Oil [Fish Oil 1,000 mg Capsule] 1,000 mg PO DAILY 11/04 Tolterodine Tartrate [Tolterodine Tartrate ER] 4 mg PO DAILY 11/04/16 Tramadol HCl [Ultram 50 mg Tablet] 100 mg PO Q12 11/04/16 Zolpidem Tartrate [Ambien] 10 mg PO QHS 11/04/16 Ipratropium/Albuterol Sulfate [Duoneb 3 ml Ampul] 3 ml NEB [id number] PRN #60 vial.neb 11/07/16 Levofloxacin [Levaquin 750 mg Tablet] 750 mg PO DAILY #10 tablet 11/07/16 Prednisone [Sterapred Ds] 1 pkg PO ASDIR PRN 12 Days 11/07/16 Additional Information: Home oxygen 2 L nasal cannula or via tracheostomy collar History of Present Illness Patient complains of: Shortness of breath and cough History of Present Illness: MARIAMA RASHEED is a 71 year old male, with history of laryngeal cancer and reported recent lung cancer which she finished radiation therapy came to the hospital because of shortness of breath and cough. Symptoms noted to be worse for the past week or so and for the last 3 days he became more short of breath and cough is productive of bloody and greenish phlegm. There is associated shortness of breath on exertion. Patient had a CT scan of the chest showing no pulmonary embolism but did reveal lung mass but with no obvious infiltrate. Patient was subsequently admitted. Her details please refer to history and physical examination performed by the admitting physician. Hospital Course Hospital Course: The patient was admitted to telemetry. The patient was started on steroids, nebulizers, and broad-spectrum antibiotics. Supplemental oxygen was given. Cultures were performed. A blood culture remained negative but the sputum culture grew staphylococcal aureus methicillin sensitive as well as Proteus. The patient received vancomycin and is ceftriaxone which the organisms were sensitive. The patient improved and antibiotics was shifted to oral. Patient' s course was noted for some bloody expectoration that eventually improved. Specimen was sent for cytology which revealed mucopurulent material but no definite malignancy noted. Of note, with activity the patient's oxygen saturation did drop to 87% on room air prior to discharge. The patient was referred to the systems requirements planner to arrange for home oxygen. The patient as he improved wanted to continue and finish treatment on an outpatient basis. Patient is aware of the CT scan findings as well as the family and they have a follow-up at [facility] where he is being evaluated for chemotherapy according to the family. The rest of hospital stays unremarkable. Physical Exam Vital Signs: Temp Pulse Resp BP Pulse Ox 98.6 F 76 18 131/68 H 100 11/07/16 07:55 11/07/16 13:29 11/07/16 13:29 11/07/16 07:55 11/07/16 08:49 Intake & Output 11/06/16 11/07/16 11/08/16 06:59 06:59 06:59 Intake Total 3035 2280 Output Total 675 1000 Balance 2360 1280 Weight 78.2 kg 79.1 kg General appearance: PRESENT: no acute distress, cooperative Head exam: PRESENT: normocephalic Eye exam: PRESENT: EOMI Mouth exam: PRESENT: moist, neck supple Neck exam: PRESENT: tracheostomy - stoma is in place Respiratory exam: PRESENT: rhonchi - few, unlabored. ABSENT: accessory muscle use, wheezes Cardiovascular exam: PRESENT: RRR. ABSENT: gallop GI/Abdominal exam: PRESENT: soft. ABSENT: distended, tenderness Extremities exam: ABSENT: pedal edema Neurological exam: PRESENT: alert, awake, oriented to person, oriented to place , oriented to time, oriented to situation Skin exam: PRESENT: dry, warm. ABSENT: cyanosis Results Laboratory Results: 11/05/16 04:40 11/07/16 09:55 11/07/16 09:55 Creatinine 0.78 Est GFR ( Amer) > 60 Est GFR (Non-Af Amer) > 60 11/04/16 21:00 Sputum Gram Stain - Final 11/04/16 21:00 Sputum Sputum Culture - Final Staphylococcus Aureus Proteus Mirabilis Normal Leighann Absent Impressions: Chest X-Ray 11/04/16 11:40 IMPRESSION: COPD. NO ACUTE RADIOGRAPHIC FINDING IN THE CHEST. Chest/Abdomen CTA 11/04/16 13:01 IMPRESSION: Left suprahilar mass. Probably a malignant. Possible subcarinal adenopathy. See above discussion. Severe centrilobular and paraseptal emphysema. Qualifiers PATEINT BEING DISCHARGED WITH ANY OF THE FOLLOWING DIAGNOSIS?: No Plan Discharge Plan: Follow-up with primary care physician in one week. Follow-up with [facility] oncology services as scheduled in 1-2 weeks Time Spent: Less than 30 Minutes
[2016-11-07] MEDS ORDERED: LEVOFLOXACIN 750 MG TABLET PO ONE (15:00)
[2016-11-07 16:06] VITALS: BP 137/72
[2016-11-08] MEDS ORDERED: LEVOFLOXACIN 750 MG TABLET PO SCH (10:00)
--- NOTE | 2016-11-19 07:37 | Progress Note ---
Provider Note Provider Note: Addendum to Discharge diagnoses: Acute bronchitis, bacterial
== END 2016-11-07 16:25 | disposition home or self-care (01) | DRG 191 ==
LOC: ER 11:37 → UNDOADMIN 16:05 → EH 16:05 → 4N 22:54
PROVIDERS: ADMIT Family Medicine; ATTEND Family Medicine
PROC: 3E0F73Z Introduction of Anti-inflammatory into Respiratory Tract, Via Natural or Artificial Opening (ICD-10-PCS; principal; 2016-11-05)
DX: J44.0 Chronic obstructive pulmonary disease with (acute) lower respiratory infection (principal); C34.90 Malignant neoplasm of unspecified part of unspecified bronchus or lung; J20.8 Acute bronchitis due to other specified organisms; J20.9 Acute bronchitis, unspecified; J44.1 Chronic obstructive pulmonary disease with (acute) exacerbation; B95.61 Methicillin susceptible Staphylococcus aureus infection as the cause of diseases classified elsewhere; B96.4 Proteus (mirabilis) (morganii) as the cause of diseases classified elsewhere; Z85.819 Personal history of malignant neoplasm of unspecified site of lip, oral cavity, and pharynx; I25.10 Atherosclerotic heart disease of native coronary artery without angina pectoris; I10 Essential (primary) hypertension; E78.5 Hyperlipidemia, unspecified; K21.9 Gastro-esophageal reflux disease without esophagitis; I73.9 Peripheral vascular disease, unspecified; I71.4 Abdominal aortic aneurysm, without rupture; Z77.123 Contact with and (suspected) exposure to radon and other naturally occurring radiation; M17.0 Bilateral primary osteoarthritis of knee; Z93.0 Tracheostomy status; Z95.5 Presence of coronary angioplasty implant and graft; Z66 Do not resuscitate; Z79.82 Long term (current) use of aspirin; Z79.02 Long term (current) use of antithrombotics/antiplatelets; Z87.891 Personal history of nicotine dependence; Z80.3 Family history of malignant neoplasm of breast; Z85.46 Personal history of malignant neoplasm of prostate; Z85.828 Personal history of other malignant neoplasm of skin; E03.9 Hypothyroidism, unspecified; Z79.899 Other long term (current) drug therapy
CPT/HCPCS: 36415; 71010; 71275; 80048; 80053; 80202; 81001; 82550; 82553; 82565; 82803; 83605; 83880; 84484; 85025; 85027; 85379; 87040; 87070; 87077; 87186; 87205; 88305; 93005; 93010; 94640; 96374; 99285; J0456; J0696; J1650; J2920; J2930; J3370; J7030; J7060; J7512; J7620

== ENCOUNTER 2017-10-01 08:09 | Day surgery (SDC) | payer MEDICARE, OTHER ==
[2017-09-24 11:02] LABS: HEMATOCRIT 38.3 % (37.9-51.0); HEMOGLOBIN 12.9 g/dL (13.5-17.0); MEAN CORPUSCULAR HEMOGLOBIN 29.9 pg (27.0-33.4); MEAN CORPUSCULAR HGB CONC 33.8 g/dL (32.0-36.0); MEAN CORPUSCULAR VOLUME 88 fl (80-97); PLATELET COUNT 221 10^3/uL (150-450); RED BLOOD COUNT 4.33 10^6/uL (4.35-5.55); RED CELL DISTRIBUTION WIDTH 14.6 % (11.5-14.0); WHITE BLOOD COUNT 6.8 10^3/uL (4.0-10.5)
[~2017-10-01 08:09] MED LIST: ACETAMINOPHEN 325 MG TABLET PO PRN; LACTATED RINGERS 1000 ML IV PRN; LIDOCAINE 0.5% INJ-PF (5 MG/ML) 50 ML SDV SUBCUT PRN
[2017-10-01] MEDS ORDERED: PROPOFOL INJ 200 MG/20 ML VIAL IV ONE (10:11)
[2017-10-01] MEDS ORDERED: KETAMINE HCL INJ 500 MG/10 ML VIAL ONE (10:11)
[2017-10-01] MEDS ORDERED: MIDAZOLAM 2 MG/2 ML INJ ONE (10:11)
[2017-10-01] MEDS ORDERED: PROMETHAZINE HCL INJ 25 MG/1 ML VIAL IV PRN ×2 (10:34)
[2017-10-01] MEDS ORDERED: FENTANYL CITRATE INJ/PF 100 MCG/2 ML AMPUL IV PRN ×3 (10:34)
[2017-10-01] MEDS ORDERED: MEPERIDINE HCL/PF INJ 25 MG/1 ML DISP.SYRIN IV PRN (10:34)
[2017-10-01] MEDS ORDERED: DIPHENHYDRAMINE HCL 50 MG/ML VIAL IV PRN (10:34)
[2017-10-01] MEDS ORDERED: MORPHINE SULFATE 10 MG/ML INJ IV PRN (10:34)
[2017-10-01] MEDS ORDERED: OXYCODONE-ACETAMINOPHEN 5-325 MG TABLET PO PRN ×2 (10:34)
--- NOTE | 2017-10-01 10:56 | Operative Report ---
Operative Report DATE OF SURGERY: 10/01/17 PREOPERATIVE DIAGNOSIS: Personal history of colon polyps; tubulovillous adenoma POSTOPERATIVE DIAGNOSIS: Normal colon OPERATION: Total colonoscopy to cecum SURGEON: SANDRO CORDOVA ANESTHESIA: LMAC TISSUE REMOVED OR ALTERED: None COMPLICATIONS: None ESTIMATED BLOOD LOSS: None INTRAOPERATIVE FINDINGS: Below PROCEDURE: Obtaining informed consent the patient was taken from the preoperative holding area to the main endoscopy suite where monitoring devices were attached to the patient. Plan and surgical timeout were conducted The patient was placed in the left lateral decubitus position with knees to chest. A perianal examination was performed. There was no visible or palpable anorectal pathology. Sphincter tone was felt to be normal. The flexible adult colonoscope was advanced through the anal rectal canal, all the way to the cecum. Visualization of the cecum was achieved and the ileocecal valve, the appendiceal orifice and transillumination of the anterior abdominal wall were achieved. This was an excellent study on the well-prepped bowel. The colonoscope was withdrawn slowly and methodically checked and the mucosa carefully. There was no evidence of tumor, stricture, bleeding or polyp. There was no evidence of diverticuloses. The scope was slowly withdrawn through the anal rectal canal. Complete visualization of the rectum was achieved with photodocumentation. The scope was withdrawn to the patient's anus. The patient tolerated the procedure well and was taken to the recovery area in stable condition. Per surveillance guidelines, patient be appropriate candidate for consideration for follow-up colonoscopy in 5 years.
--- NOTE | 2017-10-01 10:58 | PDOC DISCHARGE SUMMARY ---
Discharge Summary (SDC) - Discharge Final Diagnosis: 1. Personal history of colon polyps 2. Normal colon on surveillance colonoscopy Date of Surgery: 10/01/17 Discharge Date: 10/01/17 Condition: Good Treatment or Instructions: [address] [address] POST ENDOSCOPY DISCHARGE INSTRUCTIONS 1. Diet: Start clear liquids that a regular diet as tolerated. 2. Resume all preoperative medications. All oral anticoagulants and aspirins can be resumed 24 hours after procedure. 3. If a polypectomy was performed some bleeding per rectum may occur. This should stop within 3 days. If not, please contact the office. 4. If you had a colonoscopy you may experience some bloating and delayed return of normal bowel function for several days, your regular bowel movement pattern should resume within a week. 5. Please contact [facility] at to make an appointment with Dr. Martinez for 1 to 3 weeks following procedure. 6. If you have any questions or concerns regarding your care,treatment plan or follow up, please contact our office. 7. Per clinical guidelines we recommend you undergo a repeat colonoscopy in 5 years. Referrals: EVIE RALPH MD [Primary Care Provider] - Discharge Activity: Activity As Tolerated Home Care Assistance: None Needed Report the Following to Your Physician Immediately: Shortness of Breath, Increase in Pain, Fever over 101 Degrees
[2017-10-01 12:42] VITALS: BP 144/84
== END 2017-10-01 12:35 | disposition home or self-care (01) ==
LOC: END 08:09
PROVIDERS: ATTEND Surgery
PROC: 0DJD8ZZ Inspection of Lower Intestinal Tract, Via Natural or Artificial Opening Endoscopic (ICD-10-PCS; principal; 2017-10-01 10:30)
DX: Z12.11 Encounter for screening for malignant neoplasm of colon (principal); Z86.010 Personal history of colon polyps; I20.8 Other forms of angina pectoris; K21.9 Gastro-esophageal reflux disease without esophagitis; E78.00 Pure hypercholesterolemia, unspecified; M19.90 Unspecified osteoarthritis, unspecified site; Z96.653 Presence of artificial knee joint, bilateral; Z87.891 Personal history of nicotine dependence; Z85.118 Personal history of other malignant neoplasm of bronchus and lung; Z85.819 Personal history of malignant neoplasm of unspecified site of lip, oral cavity, and pharynx; Z79.899 Other long term (current) drug therapy; Z79.82 Long term (current) use of aspirin; Z79.891 Long term (current) use of opiate analgesic
CPT/HCPCS: 36415; 85027; G0121; J2250; J3490; J2704; 45378; 811

== ENCOUNTER 2018-02-28 13:10 | Emergency (ER) | payer MEDICARE, OTHER ==
[2018-02-28 14:05] LABS: ABSOLUTE BASOPHILS # (AUTO) 0.1 10^3/uL (0.0-0.2); ABSOLUTE EOSINOPHILS # (AUTO) 1.2 10^3/uL (0.0-0.6); ABSOLUTE MONOCYTES (AUTO) 0.3 10^3/uL (0.1-1.4); ABSOLUTE NEUT (AUTO) 11.5 10^3/uL (1.7-8.2); BASOPHILS % (AUTO) 0.4 % (0-2); EOSINOPHILS % (AUTO) 8.5 % (0-6); HEMATOCRIT 38.6 % (37.9-51.0); HEMOGLOBIN 12.7 g/dL (13.5-17.0); MEAN CORPUSCULAR HEMOGLOBIN 29.9 pg (27.0-33.4); MEAN CORPUSCULAR VOLUME 91 fl (80-97); MONOCYTES % (AUTO) 2.2 % (3-13); PLATELET COUNT 283 10^3/uL (150-450); RED BLOOD COUNT 4.25 10^6/uL (4.35-5.55); RED CELL DISTRIBUTION WIDTH 16.2 % (11.5-14.0); SEGMENTED NEUTROPHILS % (AUTO) 81.9 % (42-78); TOTAL CELLS COUNTED % (AUTO) 100 %
[2018-02-28 14:06] LABS: VENOUS BLOOD BASE EXCESS -0.4 mmol/L; VENOUS BLOOD HCO3 27.5 mmol/L (20-32); VENOUS BLOOD PCO2 57.5 mmHg (35-63); VENOUS BLOOD PH 7.3 (7.30-7.42)
--- NOTE | 2018-02-28 14:19 | ER Document Report ---
ED Respiratory Problem - General Mode of Arrival: Medic Information source: Patient TRAVEL OUTSIDE OF THE [place] IN LAST 30 DAYS: No <JEREMY CUENCA - Last Filed: 02/28/18 15:24> <BOWEN SAMUEL - Last Filed: 02/28/18 21:11> <CAMRON GRIFFINIAN - Last Filed: 02/28/18 23:36> - General Chief Complaint: Respiratory Distress Stated Complaint: DIFFICULTY BREATHING Time Seen by Provider: 02/28/18 13:43 Notes: Patient is a 72 year old male with lung cancer and a laryngectomy with a trach presents to the emergency department complaining of difficulty breathing onset last night worsening today. Patient states he began to excessively wheeze today. He states EMS gave him breathing treatments which he states helped relieved his wheezing. Patient also complains of decreased appetite, bilateral rib pain, and back pain. Patient denies fevers, breathing treatments or oxygen use at home. Patient states he went into remission on July 17, 2016 further stating the cancer returned on February 19 and metastasized to his adrenal glands and brain. On February 19, 2018 2L of pink clear fluid was removed from his left lung. (JEREMY CUENCA) - Related Data Allergies/Adverse Reactions: No Known Allergies Allergy (Verified 09/24/17 08:30) Past Medical History - General Information source: Patient - Social History Smoking Status: Former Smoker Family History: Reviewed & Not Pertinent Patient has suicidal ideation: No Patient has homicidal ideation: No - Past Medical History Cardiac Medical History: Reports: Hx Coronary Artery Disease - 2X STENTS IN HEART, Hx Hypercholesterolemia, Hx Peripheral Vascular Disease Pulmonary Medical History: Reports: Hx COPD - USES INHALER PRN Renal/ Medical History: Reports: Hx Benign Prostatic Hyperplasia Malignancy Medical History: Reports Hx Lung Cancer GI Medical History: Reports: Hx Gastroesophageal Reflux Disease Musculoskeltal Medical History: Reports Hx Arthritis - GEN Infectious Medical History: Past Surgical History: Reports: Hx Cardiac Catheterization, Hx Carotid Endarterectomy, Hx Coronary Stent, Hx Herniorrhaphy, Hx Vascular Surgery - Right femoropopliteal bypass - Immunizations Hx Diphtheria, Pertussis, Tetanus Vaccination: Yes - 2008 Hx Pneumococcal Vaccination: 07/02/17 <JEREMY CUENCA - Last Filed: 02/28/18 15:24> Review of Systems - Review of Systems Constitutional: No symptoms reported EENT: No symptoms reported Cardiovascular: No symptoms reported Respiratory: See HPI, Wheezing Gastrointestinal: No symptoms reported Genitourinary: No symptoms reported Male Genitourinary: No symptoms reported Musculoskeletal: No symptoms reported Skin: No symptoms reported Hematologic/Lymphatic: No symptoms reported Neurological/Psychological: No symptoms reported -: Yes All other systems reviewed and negative <JEREMY CUENCA - Last Filed: 02/28/18 15:24> Physical Exam - General General appearance: Appears well, Alert In distress: None - HEENT Head: Normocephalic, Atraumatic Eyes: Normal Conjunctiva: Normal Extraocular movements intact: Yes Pupils: PERRL Neck: Other - Trach in place. - Respiratory Respiratory status: No respiratory distress Chest status: Nontender Breath sounds: Rhonchi - Louder in the left anterior lung, diffuse expriatory. - Cardiovascular Rhythm: Regular Heart sounds: Normal auscultation Murmur: No Friction rub: No Gallop: None auscultated - Abdominal Inspection: Normal Distension: No distension Bowel sounds: Normal Tenderness: Nontender Organomegaly: No organomegaly - Back Back: Normal - Extremities General upper extremity: Normal ROM General lower extremity: Normal ROM - Neurological Neuro grossly intact: Yes Cognition: Normal Orientation: AAOx4 [place] Coma Scale Eye Opening: Spontaneous [place] Coma Scale Verbal: Oriented Artur Coma Scale Motor: Obeys Commands Artur Coma Scale Total: 15 Speech: Normal - Psychological Associated symptoms: Normal affect, Normal mood - Skin Skin Temperature: Warm Skin Moisture: Dry Skin Color: Normal <JEREMY CUENCA - Last Filed: 02/28/18 15:24> - Vital signs Vitals: Resp Pulse Ox 19 92 02/28/18 13:14 02/28/18 13:14 Course - Laboratory Result Diagrams: 02/28/18 13:30 02/28/18 13:30 <JEREMY CUENCA - Last Filed: 02/28/18 15:24> - Laboratory Result Diagrams: 02/28/18 13:30 02/28/18 13:30 - Diagnostic Test Radiology reviewed: Image reviewed, Reports reviewed - Large left pleural effusion with fluid in the fissure, right paratracheal adenopathy, right upper lobe opacity - EKG Interpretation by [place] EKG shows normal: Sinus rhythm, [place], Intervals, QRS Complexes. abnormal: ST-T Waves - Borderline T-wave abnormalities Rate: Normal - 89 Rhythm: NSR When compared to previous EKG there are: No significant change - Consults Dr. Lai Time consulted: 18:10 Consulted provider: will come to ER - Transfer of Care Care transferred to following provider: Dr. Griffin <BOWEN SAMUEL - Last Filed: 02/28/18 21:11> - Laboratory Result Diagrams: 02/28/18 13:30 02/28/18 13:30 <PUNEET GRIFFIN - Last Filed: 02/28/18 23:36> - Re-evaluation Re-evalutation: 02/28/18 18:41 The patient's troponin is dated at 0.155, 3 hours later it was 0.169. His lactic acid initially was 3.1 and 3 hours later was 3.8. His white blood cell count is 14,000 with 82 segs and no bands. By history it sounds like he was hypoxic at home, this may account for the troponin, and the possible sepsis could account for the elevated troponin. At one point his breathing sounded like gurgling and he was getting more labored , he was suctioned with good results and O2 sats went to 100% and he was smiling and felt much better. 02/28/18 19:55 The patient's blood pressure did drop into the 90s systolic, he was given IV fluid bolus and he is now up to 120/75. He is on a 50% humidified trach collar oxygen saturation at 100% now with a pulse of 121. The patient was going to be admitted to this facility, but then he and family decided he wanted to be transferred to [facility]. 02/28/18 20:07 Dr. Caballero from the oncology department agrees to have the patient transferred to [facility], but wants him to go through the emergency department for evaluation prior to deciding what kind of bed to assign him. Dr. Tono Henry in the emergency department is accepting the patient as an ED to ED transfer. 02/28/18 20:59 The patient and multiple family members became quite anxious about him laying flat for the CTA chest, so Ativan 0.5 mg IV was ordered. 02/28/18 21:01 He is now refusing the CTA but still wants the Ativan for his nerves. (BOWEN SAMUEL) 02/28/18 23:36 Patient remains appropriate for transport. (PUNEET GRIFFIN) - Vital Signs Vital signs: Temp Pulse Resp BP Pulse Ox 99.2 F 101 H 21 H 116/61 99 02/28/18 13:44 02/28/18 13:41 02/28/18 21:41 02/28/18 21:41 02/28/18 21:41 - Laboratory Laboratory results interpreted by me: 02/28/18 02/28/18 02/28/18 13:30 13:30 13:30 WBC 14.0 H RBC 4.25 L Hgb 12.7 L RDW 16.2 H Seg Neutrophils % 81.9 H Lymphocytes % 7.0 L Monocytes % 2.2 L Eosinophils % 8.5 H Absolute Neutrophils 11.5 H Absolute Eosinophils 1.2 H Sodium 145.3 H BUN 34 H Glucose 111 H Lactic Acid 3.1 H ALT 19 L Albumin 3.2 L 02/28/18 16:24 WBC RBC Hgb RDW Seg Neutrophils % Lymphocytes % Monocytes % Eosinophils % Absolute Neutrophils Absolute Eosinophils Sodium BUN Glucose Lactic Acid 3.8 H ALT Albumin - Transfer of Care Notes: 02/28/18 21:11 The patient is pending transfer to [facility] emergency department. His vital signs have improved over the last hour with fluid boluses. His heart rate is now down to 108, oxygen saturation 99% and blood pressure 115/62. (BOWEN SAMUEL) Critical Care Note - Critical Care Note Total time excluding time spent on procedures (mins): 85 <BOWEN SAMUEL - Last Filed: 02/28/18 21:11> Discharge <JEREMY CUENCA - Last Filed: 02/28/18 15:24> - Discharge Admitting Provider: Hospitalist Unit Admitted: IMCU <BOWEN SAMUEL - Last Filed: 02/28/18 21:11> <PUNEET GRIFFIN - Last Filed: 02/28/18 23:36> - Discharge Clinical Impression: Recurrent left pleural effusion, COPD exacerbation, Elevated troponin I level, Tachycardia Metastatic lung cancer (metastasis from lung to other site) Qualifiers: Laterality: left Qualified Code(s): C34.92 - Malignant neoplasm of unspecified part of left bronchus or lung Leukocytosis Qualifiers: Leukocytosis type: unspecified Qualified Code(s): D72.829 - Elevated white blood cell count, unspecified Left upper lobe pneumonia Qualifiers: Pneumonia type: due to unspecified organism Qualified Code(s): J18.1 - Lobar pneumonia, unspecified organism Hypotension Qualifiers: Hypotension type: unspecified hypotension type Qualified Code(s): I95.9 - Hypotension, unspecified Condition: Fair Disposition: ADMITTED INPATIENT Scribe Attestation: 02/28/18 16:11 I personally performed the services described in the documentation, reviewed and edited the documentation which was dictated to the scribe in my presence, and it accurately records my words and actions. (BOWEN SAMUEL) Scribe Documentation - Scribe Written by Lencho:: Lencho Byrd, 02/28/2018 14:27 acting as scribe for :: Yina <JEREMY CUENCA - Last Filed: 02/28/18 15:24>
[2018-02-28] MEDS ORDERED: ALBUTEROL SULFATE 0.083% NEB 2.5 MG/3 ML AMPUL NEB ONE ×2 (14:21→17:30)
[2018-02-28 14:26] LABS: ALANINE AMINOTRANSFERASE 19 U/L (21-72); ALBUMIN 3.2 g/dL (3.5-5.0); ALKALINE PHOSPHATASE 95 U/L (38-126); ANION GAP 13 (5-19); ASPARTATE AMINO TRANSFERASE 32 U/L (17-59); BILIRUBIN,DIRECT 0.4 mg/dL (0.0-0.4); BILIRUBIN,TOTAL 0.5 mg/dL (0.2-1.3); BLOOD UREA NITROGEN 34 mg/dL (7-20); CALCIUM 8.4 mg/dL (8.4-10.2); CARBON DIOXIDE 28 mmol/L (22-30); CHLORIDE 104 mmol/L (98-107); GLUCOSE 111 mg/dL (75-110); POTASSIUM 4.8 mmol/L (3.6-5.0); SODIUM 145.3 mmol/L (137-145); TOTAL PROTEIN 6.3 g/dL (6.3-8.2)
--- NOTE | 2018-02-28 14:56 | RADIOLOGY REPORT (SQ) ---
EXAM DESCRIPTION: CHEST SINGLE VIEW COMPLETED DATE/TIME: 02/28/2018 2:23 pm REASON FOR STUDY: SOB,COPD-lung CA, recent left pleurocentesis COMPARISON: 11/04/2016, CT scan 11/04/2016 EXAM PARAMETERS: NUMBER OF VIEWS: One view. TECHNIQUE: Single frontal radiographic view of the chest acquired. RADIATION DOSE: NA LIMITATIONS: None. FINDINGS: LUNGS AND PLEURA: Large left effusion with fluid in the fissure. No pneumothorax. Parenc hymal opacity in the right upper lobe. MEDIASTINUM AND HILAR STRUCTURES: Likely right paratracheal adenopathy. HEART AND VASCULAR STRUCTURES: Heart normal in size. Normal vasculature. BONES: No acute findings. HARDWARE: None in the chest. OTHER: No other significant finding. IMPRESSION: Large left pleural effusion with fluid in the fissure. Probable right paratracheal adenopathy. Right upper lobe opacity. TECHNICAL DOCUMENTATION: JOB ID: [id number] [employer]- All Rights Reserved Reading location - IP/workstation name: [email or web address]
[2018-02-28] MEDS ORDERED: IPRATROPIUM/ALBUTEROL 0.5-2.5 MG/3 ML AMPUL NEB ONE (15:54)
[2018-02-28] MEDS ORDERED: FENTANYL CITRATE INJ/PF 100 MCG/2 ML AMPUL IV ONE ×2 (16:07→20:11)
[2018-02-28] MEDS ORDERED: LEVOFLOXACIN 750 MG/D5W RTU 750 MG/150 ML RTUPB IV ONE (16:10)
[2018-02-28 18:07] LABS: APPEARANCE,URINE CLEAR; BILIRUBIN,URINE NEGATIVE (NEGATIVE); COLOR,URINE YELLOW; GLUCOSE, URINE NEGATIVE (NEGATIVE); KETONES,URINE NEGATIVE (NEGATIVE); LEUKOCYTE ESTERASE,URINE NEGATIVE (NEGATIVE); NITRITE,URINE NEGATIVE (NEGATIVE); PROTEIN,URINE NEGATIVE (NEGATIVE); UROBILINOGEN,URINE NEGATIVE mg/dL (<2.0)
[2018-02-28] MEDS ORDERED: NORMAL SALINE 1000 ML 500 ML IV ONE (18:23)
[2018-02-28] MEDS ORDERED: ACETAMINOPHEN 325 MG TABLET PO ONE (20:07)
[2018-02-28] MEDS ORDERED: NORMAL SALINE 1000 ML 1,000 ML IV ONE (20:09)
[2018-02-28] MEDS ORDERED: LORAZEPAM INJ 2 MG/1 ML VIAL IV ONE ×2 (20:55→20:58)
--- NOTE | 2018-02-28 22:59 | EKG REPORT ---
SEVERITY:- BORDERLINE ECG - SINUS RHYTHM BORDERLINE T WAVE ABNORMALITIES : Confirmed by: Amanda Chun MD 28-Feb-2018 22:59:14
[2018-02-28 23:55] VITALS: BP 106/74
== END 2018-02-28 23:49 | disposition short-term general hospital (02) ==
LOC: ER 13:10 → EH 19:22 → UNDOADMIN 19:22 → UNDODISIN 23:49
DX: J44.0 Chronic obstructive pulmonary disease with (acute) lower respiratory infection (principal); J18.1 Lobar pneumonia, unspecified organism; J44.1 Chronic obstructive pulmonary disease with (acute) exacerbation; C34.92 Malignant neoplasm of unspecified part of left bronchus or lung; C79.70 Secondary malignant neoplasm of unspecified adrenal gland; C79.31 Secondary malignant neoplasm of brain; J90 Pleural effusion, not elsewhere classified; I95.9 Hypotension, unspecified; R00.0 Tachycardia, unspecified; R63.0 Anorexia; R07.81 Pleurodynia; M54.9 Dorsalgia, unspecified; R74.8 Abnormal levels of other serum enzymes; I25.10 Atherosclerotic heart disease of native coronary artery without angina pectoris; Z95.5 Presence of coronary angioplasty implant and graft; Z90.02 Acquired absence of larynx; Z93.0 Tracheostomy status; Z87.891 Personal history of nicotine dependence
CPT/HCPCS: 93005; 94640 ×2; 99291; 99292; 96375; 96365; 36415; 87040; 87070; 87205; 82550; 83605 ×2; 85025; 87077; 80053; 81001; 84484; 87186; 82803; 71045; 93010; A9270 ×2; J3010; J2060; J7030; J1956; J7620